=== PATIENT | female | born 1940 | race Caucasian/White ===

== ENCOUNTER → 2020-10-11 | Day surgery (SDC) | payer MEDICARE, BC ==
[~2020-10-11] VITALS: Ht 165.1 cm; Wt 54.0 kg
[~2020-10-11] MED LIST: COZAAR 25MG TAB25 MG PO; HYDROCODON-ACE1 EAC4 PO; HYDROCODONE-AC1 EACH PO; LEVOTHYROXINE88 MCG PO
[2020-10-11 08:19] LABS: HEMOGLOBIN 10.7 gm/dl (12.3-15.3); RED BLOOD COUNT 3.96 M/UL (4.00-5.10)
[2020-10-11 08:43] LABS: BUN/CREATININE RATIO 18 (0-10)
== END | disposition home or self-care (01) ==
LOC: OR 07:29
PROVIDERS: Orthopaedic Surgery
DX: S69.92XA Unspecified injury of left wrist, hand and finger(s), initial encounter (principal); I10 Essential (primary) hypertension; E03.9 Hypothyroidism, unspecified; S52.502A Unspecified fracture of the lower end of left radius, initial encounter for closed fracture; Z90.710 Acquired absence of both cervix and uterus; Z79.899 Other long term (current) drug therapy
CPT/HCPCS: 36415; 73100; 76000; 80048; 85025; 93005; C1713; J0690; J1100; J2001; J2405; J2704; J2795; J3010; J7030; J7120